=== PATIENT | male | born 1970 ===

== ENCOUNTER 2023-03-31 08:37 | Day surgery (SDC) | payer OTHER | END 2023-03-31 15:25 | disposition home or self-care (01) | LOC: AMB-ENDOS 08:37 | PROVIDERS: ATTEND Colon & Rectal Surgery | DX: D12.2 Benign neoplasm of ascending colon (principal); D12.4 Benign neoplasm of descending colon; K57.30 Diverticulosis of large intestine without perforation or abscess without bleeding; K64.8 Other hemorrhoids; Z20.822 Contact with and (suspected) exposure to COVID-19 ==

== ENCOUNTER 2025-08-17 08:30 | Day surgery (SDC) | payer OTHER ==
[~2025-08-17 08:30] MED LIST: DIPHENHYDRAMINE HCL 50 MG/ML VIAL 1ML IV ONE; MIDAZOLAM HCL 2 MG/2 ML VIAL IV ONE; ONDANSETRON HCL 2 MG/ML VIAL IV ONE; fentaNYL CITRATE 50 MCG/ML AMPUL IV PUSH ONE
== END 2025-08-17 09:00 | disposition home or self-care (01) ==
LOC: AMB-ENDOS 08:30
PROVIDERS: ATTEND Colon & Rectal Surgery
DX: D12.2 Benign neoplasm of ascending colon (principal); D12.3 Benign neoplasm of transverse colon; D12.4 Benign neoplasm of descending colon; K63.5 Polyp of colon; K57.30 Diverticulosis of large intestine without perforation or abscess without bleeding; Z88.6 Allergy status to analgesic agent